=== PATIENT | female | born 1980 | race Two or more races ===

== ENCOUNTER → 2018-03-03 16:53 | Outpatient (CLI) | payer BC, SELFPAY ==
[2018-03-10 16:13] LABS: HPV HC, High Risk Negative (Negative)
== END ==
PROVIDERS: Referring Provider Obstetrics & Gynecology; Visit Provider Obstetrics & Gynecology
DX: Z12.4 Encounter for screening for malignant neoplasm of cervix (principal)
CPT/HCPCS: 87624; 88175; G0145

== ENCOUNTER → 2019-05-03 | Outpatient (CLI) | payer BC, SELFPAY ==
[2019-05-08 09:07] LABS: Age Gdln ACOG Testing 30-65 (.)
[2019-05-08 12:28] LABS: HPV APTIMA, High Risk Negative (Negative)
[2019-05-08 12:31] LABS: HPV Reflexed? YES, CHARGE PATIENT
== END | disposition home or self-care (01) ==
LOC: LABSPEC 15:51
PROVIDERS: Referring Provider Obstetrics & Gynecology; Visit Provider Obstetrics & Gynecology
DX: R87.610 Atypical squamous cells of undetermined significance on cytologic smear of cervix (ASC-US) (principal); Z12.4 Encounter for screening for malignant neoplasm of cervix
CPT/HCPCS: 87624; 88175; G0145